=== PATIENT | female | born 1990 | race Caucasian/White ===

== ENCOUNTER 2022-02-18 15:08 | Emergency (ER) | payer MEDICAID ==
[~2022-02-18] VITALS: Ht 165.1 cm; Wt 99.8 kg
[2022-02-18 15:37] VITALS: BP_SYST 106
--- NOTE | 2022-02-18 18:49 | NUR ---
plPatient to ER chair for evaluation.
--- NOTE | 2022-02-18 18:49 | NUR ---
patient brought incomplaining of right ear pain and possible foreign body since yesterday. pain 01/05. vss.
--- NOTE | 2022-02-18 19:54 | NUR ---
CHRISTIE Hansen examining patient.
[2022-02-18] MEDS ORDERED: AMOX500C2 PO (20:23)
[2022-02-18] MEDS ORDERED: ACET325T PO (20:23)
[2022-02-18] MEDS ORDERED: CIPR10DR17 OT (20:23)
[2022-02-18] MEDS ORDERED: AMOXICILLIN 500 MG CAPSULE PO ONE (20:30)
[2022-02-18] MEDS ORDERED: ACETAMINOPHEN 500 MG TABLET PO ONE (20:30)
[2022-02-18] MEDS ORDERED: KETOROLAC TROMETHAMINE 30 MG VIAL IM ONE (20:30)
[2022-02-18 20:40] VITALS: BP_SYST 110
--- NOTE | 2022-02-18 20:40 | NUR ---
Patient given written and verbal discharge instructions and verbalizes understanding. ER MD discussed with patient the results and treatment provided. Patient in stable condition. ID arm band removed. Rx of tylenol, amoxicillin, cipro given. Patient educated on pain management and to follow up with PMD. Pain Scale 0/10 Opportunity for questions provided and answered. Medication side effect fact sheet provided.
== END 2022-02-18 20:40 | disposition home or self-care (01) ==
LOC: SED 15:08
DX: H66.91 Otitis media, unspecified, right ear (principal); H92.01 Otalgia, right ear; R51.9 Headache, unspecified; Z79.899 Other long term (current) drug therapy
CPT/HCPCS: 99283; 81025; 96372; J1885

== ENCOUNTER 2022-07-20 15:40 | Emergency (ER) | payer MEDICAID ==
[~2022-07-20] VITALS: Ht 167.6 cm; Wt 137.4 kg
[~2022-07-20 15:40] MED LIST: ACET325T PO; AMOX500C2 PO; CIPR10DR17 OT
--- NOTE | 2022-07-20 15:45 | NUR ---
Pt brought by self,A&Ox4, pt presents to ER with L leg pain after syncopal episode yesterday at 1600, pt ambulating with pain, VSS, skin pink and warm, cap refill <3, VSS, will cont to monitor.
--- NOTE | 2022-07-20 16:01 | NUR ---
called for triage no answer
--- NOTE | 2022-07-20 16:10 | NUR ---
Dr Ariza evaluating patient at bedside
[2022-07-20 17:05] VITALS: BP_SYST 147
[2022-07-20 17:26] LABS: BASOPHILS % (AUTO) 0.6 % (0.0-2.0); EOSINOPHILS # (AUTO) 0.5 K/uL (0.0-0.4); EOSINOPHILS % (AUTO) 6.9 % (0.0-4.0); HEMATOCRIT 40.2 % (36-48); LYMPHOCYTES # (AUTO) 2.6 K/uL (1.0-5.5); MEAN CORPUSCULAR HEMOGLOBIN 28 pg (27-31); MEAN CORPUSCULAR HGB CONC 32 % (32-36); MEAN CORPUSCULAR VOLUME 85 fL (79.0-98.0); MONOCYTES # (AUTO) 0.4 K/uL (0.0-1.0); NEUTROPHILS # (AUTO) 4.3 K/uL (1.8-7.7); NEUTROPHILS % (AUTO) 54.5 % (40.0-70.0); PLATELET COUNT (AUTO) 191 K/uL (130-430); RED BLOOD CELL COUNT(AUTO) 4.72 MIL/uL (4.2-6.2); RED CELL DISTRIBUTION WIDTH 18.1 % (9.0-15.0); WHITE BLOOD COUNT (AUTO) 7.9 K/uL (4.8-10.8)
[2022-07-20 18:01] LABS: ANION GAP 7 (5-15); CALCIUM 8.9 mg/dL (8.4-11.0); CHLORIDE 107 mmol/L (98-107); CREATININE 0.59 mg/dL (0.55-1.30); GLUCOSE 109 mg/dL (70-99); UREA NITROGEN, BLOOD 20 mg/dL (8-21)
[2022-07-20 18:06] LABS: GFR AFRICAN AMERICAN 151 mL/min (>90)
[2022-07-20 18:10] LABS: ALANINE AMINOTRANSFERASE 24 U/L (12-78); ALBUMIN 3.7 g/dL (3.4-4.8); ASPARTATE AMINOTRANSFERASE 15 U/L (10-37); TOTAL BILIRUBIN 0.3 mg/dL (0.0-1.0)
--- NOTE | 2022-07-20 18:20 | NUR ---
Pt A&Ox4, VSS, respirations even and unlabored, will cont to monitor.
--- NOTE | 2022-07-20 19:49 | NUR ---
Patient given written and verbal discharge instructions and verbalizes understanding. ER MD discussed with patient the results and treatment provided. Patient in stable condition. ID arm band removed. No Rx given. Patient educated on pain management and to follow up with PMD. Pain Scale 2/10. Opportunity for questions provided and answered. Medication side effect fact sheet provided.
[2022-07-20 19:52] VITALS: BP_SYST 147
== END 2022-07-20 19:52 | disposition home or self-care (01) ==
LOC: SED 15:40
DX: R55 Syncope and collapse (principal); M25.572 Pain in left ankle and joints of left foot; Z79.899 Other long term (current) drug therapy
CPT/HCPCS: 36415; 70450-TC; 71045; 76376; 80053; 81025; 82550; 83605; 84484; 85025; 93005; 99285